=== PATIENT | male | born 1950 | race Caucasian/White ===

== ENCOUNTER 2021-11-03 00:16 | Inpatient (IN) | payer MEDICARE ==
[~2021-11-03] VITALS: Ht 177.8 cm; Wt 89.8 kg
[2021-11-03 04:27] LABS: HEMOGLOBIN 12.9 gm/dl (14.0-17.5); RED BLOOD COUNT 4.12 M/UL (4.20-5.50); WHITE BLOOD COUNT 20.8 K/UL (4.5-11.0)
[2021-11-03 04:43] LABS: BUN/CREATININE RATIO 25 (0-10)
[2021-11-03] MEDS ORDERED: OMEPRAZOLE40 MG PO (12:03)
[2021-11-03] MEDS ORDERED: TRAZODONE HCL150 MG PO (12:05)
[2021-11-03] MEDS ORDERED: ATORVASTATIN CA40 MG PO (12:06)
[2021-11-03] MEDS ORDERED: FLOMAX 0.4 MG0.4 MG PO (12:07)
[2021-11-03] MEDS ORDERED: AMLODIPINE BESY10 MG PO (12:08)
[2021-11-03] MEDS ORDERED: LISINOPRIL10 MG PO (12:08)
[2021-11-04 06:34] LABS: HEMOGLOBIN 13.3 gm/dl (14.0-17.5); RED BLOOD COUNT 4.28 M/UL (4.20-5.50); WHITE BLOOD COUNT 16.3 K/UL (4.5-11.0)
[2021-11-04 06:53] LABS: BUN/CREATININE RATIO 17 (0-10)
[2021-11-05 06:46] LABS: HEMOGLOBIN 13.3 gm/dl (14.0-17.5); RED BLOOD COUNT 4.25 M/UL (4.20-5.50)
[2021-11-05 06:48] LABS: WHITE BLOOD COUNT 11.4 K/UL (4.5-11.0)
[2021-11-05 07:17] LABS: BUN/CREATININE RATIO 17 (0-10)
[2021-11-06 07:34] LABS: HEMOGLOBIN 12.7 gm/dl (14.0-17.5); RED BLOOD COUNT 4.21 M/UL (4.20-5.50)
[2021-11-06 07:37] LABS: WHITE BLOOD COUNT 8.4 K/UL (4.5-11.0)
[2021-11-06 07:54] LABS: BUN/CREATININE RATIO 18 (0-10)
[2021-11-06] MEDS ORDERED: LEVOFLOXACIN500 MG PO (10:56)
[2021-11-06] MEDS ORDERED: LACTINEX TABLET1 EA PO (10:56)
[2021-11-06] MEDS ORDERED: METRONIDAZOLE500 MG PO (10:56)
[2021-11-06] MEDS ORDERED: PHENERGAN 12.12.5 M1 PO (10:56)
[2021-11-06] MEDS ORDERED: COLACE100 MG PO (11:05)
[2021-11-06] MEDS ORDERED: HYDROCODON-ACE1 EAC4 PO (11:11)
== END 2021-11-06 12:10 | disposition home or self-care (01) | DRG 392 ==
LOC: MED SURG 4 00:51
PROVIDERS: Internal Medicine; Physician Assistant; ADMIT Internal Medicine
DX: K57.20 Diverticulitis of large intestine with perforation and abscess without bleeding (principal); K56.7 Ileus, unspecified; E78.5 Hyperlipidemia, unspecified; Z20.822 Contact with and (suspected) exposure to COVID-19; I10 Essential (primary) hypertension; N40.0 Benign prostatic hyperplasia without lower urinary tract symptoms; J44.9 Chronic obstructive pulmonary disease, unspecified; E66.01 Morbid (severe) obesity due to excess calories; F17.210 Nicotine dependence, cigarettes, uncomplicated; K21.9 Gastro-esophageal reflux disease without esophagitis; Z80.1 Family history of malignant neoplasm of trachea, bronchus and lung; Z82.49 Family history of ischemic heart disease and other diseases of the circulatory system
CPT/HCPCS: 36415; 74019; 80048; 85025; 85027; 87040; 94640; 94664; 94760; J1650; J2270; J2405; J2543; J7030

== ENCOUNTER → 2022-01-02 | Day surgery (SDC) | payer MEDICARE ==
[~2022-01-02] MED LIST: AMLODIPINE BESY10 MG PO; ATORVASTATIN CA40 MG PO; COLACE100 MG PO; FLOMAX 0.4 MG0.4 MG PO; HYDROCODON-ACE1 EAC4 PO; LACTINEX TABLET1 EA PO; LEVOFLOXACIN500 MG PO; LISINOPRIL10 MG PO; METRONIDAZOLE500 MG PO; OMEPRAZOLE40 MG PO; PHENERGAN 12.12.5 M1 PO; TRAZODONE HCL150 MG PO
== END | disposition home or self-care (01) ==
LOC: OR 05:24
DX: K57.20 Diverticulitis of large intestine with perforation and abscess without bleeding (principal); D12.5 Benign neoplasm of sigmoid colon; N40.0 Benign prostatic hyperplasia without lower urinary tract symptoms; I10 Essential (primary) hypertension; E78.00 Pure hypercholesterolemia, unspecified; J44.9 Chronic obstructive pulmonary disease, unspecified; F17.210 Nicotine dependence, cigarettes, uncomplicated; Z79.899 Other long term (current) drug therapy
CPT/HCPCS: J2001; J2704